=== PATIENT | male | born 1970 | race Asian ===

== ENCOUNTER 2024-09-17 10:02 | Observation (INO) ==
--- NOTE | 2024-09-17 10:44 | Emergency Department Note ---
History of Present Illness General Chief complaint: Cardiac Assessment Stated complaint: ABD PAIN, WEAKNESS/FEELS HEAVY Time Seen by Provider: 09/17/24 10:14 History of Present Illness Maximum Pain Intensity: 4 this 54-year-old male with a history of elevated cholesterol, hypertension, splenic infarct, and celiac artery thrombus and embolism, presents today with his son and , for evaluation of epigastric pain that occurred this morning. He had eaten breakfast and was walking the dog with his . He had epigastric discomfort at that time. He returned home. The epigastric pain lasted for approximately 20 minutes, increasing when he got home. He states he broke out in a sweat. It has now resolved. He currently denies any discomfort. His son and are doing the translation. He denies any nausea, vomiting, diarrhea, melena, or blood in his stools. 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 His states he had a near syncopal episode this morning and started to fall. She assisted him to the ground. He did not strike his head. There was no loss of consciousness. No other complaints at this time. The patient was evaluated in room C3. Home Medications Medication Instructions Recorded Confirmed Type atorvastatin 20 mg tablet 20 mg PO DAILY ##0 09/16/14 09/17/24 History Caltrate 600 600 mg PO BID #0 tabs 11/30/14 09/17/24 History amlodipine 10 mg tablet 10 mg PO DAILY #0 tabs 11/30/14 09/17/24 History warfarin 5 mg tablet 5 mg PO DAILY #0 tabs 01/02/15 09/17/24 History pantoprazole 40 mg tablet,delayed 40 mg PO DAILY #30 tabs 09/18/24 Rx release prednisone 10 mg tablet 30 mg (3 x 10 mg) PO DAILY #60 tabs 09/18/24 Rx Allergies Allergy/AdvReac Type Severity Reaction Status Date / Time No Known Allergies Allergy Unverified 09/18/14 03:22 Past Med/Surg History Problem List (Updated 09/20/24 @ 09:32 by Sukhjinder Anderson PA-C) Primary hypercoagulable state Arterial dissection (Acute) Elevated lactic acid level (Acute) Epigastric abdominal pain (Acute) Splenic infarct (Acute) Sudden onset of severe abdominal pain (Acute) Medical History HTN (hypertension) Hyperlipidemia Takayasu's arteritis Elevated cholesterol 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 Family History Other No pertinent family history Social History Smoking Status: Never smoker Hx Alcohol Use: No Hx Substance Use: No Preferred Language: Mandarin Bermudian Communication Ability: Effective Communication Tools: IPad and Language Line Inspector Dials Inspector Dials Required: Yes Beliefs That Will Affect Care: None Current Living Situation: Family Current Living Situation Comment: pt lives with family members Other Information That Helps Us Care for You: No Feels Safe at Home: Yes Safety Concerns: Feels Safe At This Time Assistive Devices: None Review of Systems A total of 10 systems reviewed and were otherwise negative obtained from his son Physical Exam Vital Signs Vital Signs - 24 hr 09/17/24 10:06 09/17/24 10:10 09/17/24 10:28 Temperature 36.2 C L Temperature Source Temporal Artery Scan Pulse Rate 73 74 Pulse Rhythm Regular Regular Pulse Strength Normal Respiratory Rate 20 18 Respiratory Effort / Characteristics Non-Labored Spontaneous Respiratory Depth Normal Respiratory Pattern Regular Blood Pressure 133/97 Blood Pressure Mean 109 Blood Pressure Position Sitting Pulse Oximetry 100 95 98 Oxygen Delivery Method Room Air Room Air Sepsis Recent Fever Within 48 Hours No Sepsis New/Unexplained Change in Mental Status No Sepsis Action Taken by Nursing No Action Required General: Well-developed, well-nourished, middle-aged male, in no acute distress. Laying on the bed. Alert and oriented. Skin: Warm dry with good turgor. No rashes. No ecchymosis or erythema. He is not currently diaphoretic. HEENT: Normocephalic atraumatic. Eyes PERRLA, EOMI. No conjunctiva or scleral injection. Ears TMs intact bilaterally with good light reflexes. No erythema or bulging. No hemotympanum. Canals are patent. Nares patent bilaterally without turbinate enlargement. No significant drainage. No epistaxis. Oropharynx without erythema or exudate. Uvula midline, oral mucosa moist. No lesions present. Fair dentition. Lymphatics are palpated without anterior or posterior chain enlargement or tenderness. Heart: Heart RRR. No MGR. Peripheral pulses are 2+. Lungs: Lungs are clear to auscultation. No crackles rhonchi or wheezing. Good air movement. The patient is able to take a deep breath. Abdomen: Abdomen was inspected, auscultated, and palpated. Bowel sounds present x 4. There is an abdominal bruit present. Soft, nontender to palpation. No hepato-splenomegaly. No masses noted. No rebound. No pain over McBurney's point. No CVA tenderness. Musculoskeletal: Gross motor function of the upper and lower extremities is intact and unremarkable. Neurologic: Gross sensation is intact across the upper and lower extremities by soft touch. Course Administered Medications Discontinued Medications Amlodipine Besylate (Amlodipine Besylate 5 Mg Tab) 10 mg PO DAILY [facility] Stop: 10/18/24 08:59 Last Admin: 09/18/24 08:59 Dose: 10 mg Documented By: [facility] Admin: 09/18/24 07:08 Dose: Not Given Documented By: [facility] Atorvastatin Calcium (Atorvastatin 20 Mg Tab) 20 mg PO DAILY [facility] Stop: 10/18/24 08:59 Last Admin: 09/18/24 08:50 Dose: 20 mg Documented By: [facility] Admin: 09/18/24 07:08 Dose: Not Given Documented By: [facility] Calcium Carbonate (Calcium Carbonate 1250mg Tab) 1 tab PO BID [facility] Stop: 10/17/24 20:59 Last Admin: 09/18/24 07:09 Dose: Not Given Documented By: [facility] Admin: 09/17/24 19:31 Dose: Not Given Documented By: KYLIE Potassium Chloride/Sodium Chloride (Normal Saline W/20 Meq Kcl) 20 meq in 1,000 mls @ 80 mls/hr IV .[id number] ERICKA Stop: 09/19/24 04:29 Last Admin: 09/18/24 04:35 Dose: 80 mls/hr Documented By: Infusion: 09/18/24 03:56 Dose: Infused Documented By: Admin: 09/17/24 15:26 Dose: 80 mls/hr Documented By: ML Ioversol (Optiray 320 125ml) 112 ml IV ONCE ONE Stop: 09/17/24 11:21 Last Admin: 09/17/24 11:20 Dose: 112 ml Documented By: NIDA Pantoprazole Sodium (Pantoprazole 40 Mg Tab) 40 mg PO DAILY [facility] Stop: 10/17/24 15:29 Last Admin: 09/18/24 07:09 Dose: Not Given Documented By: Admin: 09/17/24 16:24 Dose: 40 mg Documented By: ML Potassium Chloride (Potassium Chloride Crtab 20 Meq Tabcr) 40 meq PO NOW [facility] Stop: 09/18/24 07:56 Last Admin: 09/18/24 08:50 Dose: 40 meq Documented By: AMANDO Prednisone (Prednisone 10 Mg Tablet) 30 mg PO DAILY [facility] Stop: 10/18/24 10:29 Last Admin: 09/18/24 11:23 Dose: 30 mg Documented By: ROSEMARIE Medical Decision Making Differential Diagnosis Acute GA, ACS, syncope, near syncope, dehydration, hypotension, electrolyte disturbance, dissection Medical Records Attestation: I reviewed the patient's medical records. Home Medications Current Medication List: was personally reviewed by me Laboratory Data CBC obtained today shows a normal white count at 5.17. Normal H&H as well as normal platelets. Chemistry panel obtained today shows normal electrolytes. Normal BUN and creatinine. Glucose is elevated at 185. LFTs are also unremarkable. Troponin obtained today was normal at 3.1. C-reactive protein is normal at less than 0.5. INR is therapeutic at 2.6. PT 25.6. Lipase is normal at 19. UA obtained today shows trace glucose and is otherwise unremarkable. 09/18/24 06:30 09/18/24 06:30 Lab Results 09/17/24 09/17/24 Range/Units 10:20 12:30 WBC 5.17 (4.8-10.8) K/ul RBC 4.84 (4.70-6.10) M/uL Hgb 14.5 (14.0-18.0) g/dl Hct 43.2 (42.0-52.0) % MCV 89.3 (80.0-100.0) fL MCH 30.0 (25.0-34.0) pg MCHC 33.6 (32.0-36.0) g/dL RDW Std Deviation 41.8 (36.4-46.3) fL RDW Coeff of Machelle 12.8 (11.5-14.5) % Plt Count 215 (130-400) K/uL MPV 9.8 (9.4-12.4) fL Immature Gran % (Auto) 0.2 % Neut % (Auto) 51.0 % Lymph % (Auto) 42.0 % [place] % (Auto) 5.0 % Eos % (Auto) 1.2 % Baso % (Auto) 0.6 % Neut # (Auto) 2.64 (1.40-6.50) K/uL Lymph # (Auto) 2.17 (1.20-3.40) K/uL [place] # (Auto) 0.26 (0.11-0.59) K/uL Eos # (Auto) 0.06 (0.00-0.50) K/uL Baso # (Auto) 0.03 (0.00-0.20) K/uL Immature Gran # (Auto) 0.01 (0.01-0.20) K/uL PT 25.6 H (9.0-12.0) Seconds INR 2.6 H (0.9-1.1) Sodium 138 (136-145) mmol/L Potassium 3.7 (3.5-5.1) mmol/L Chloride 104 (98-107) mmol/L Carbon Dioxide 27 (21-32) mmol/L Anion Gap 7 (3-11) BUN 30 H (6-23) mg/dl Creatinine 1.15 (0.6-1.4) mg/dl Est Cr Clr Drug Dosing 62.8 ml/min eGFR 75.63 BUN/Creatinine Ratio 26.1 H (10-20) Glucose 185 H (70-99(Fasting)) mg/dl Calcium 9.4 (8.6-10.3) mg/dl Total Bilirubin 0.7 (0.2-1.0) mg/dl AST 33 (13-39) U/L ALT 41 (7-52) U/L Alkaline Phosphatase 101 (34-104) U/L Troponin I High Sens 3.1 (0-20) pg/ml C-Reactive Protein < 0.50 (0-0.5) mg/dl Total Protein 7.9 (6.0-8.3) gm/dl Albumin 4.4 (3.4-5.0) gm/dl Globulin 3.5 (2.5-4.0) gm/dl Albumin/Globulin Ratio 1.3 (0.9-2) Lipase 19 (11-82) U/L Urine Color Yellow Urine Appearance Clear (Clear) Urine pH 7.0 (4.5-7.5) Ur Specific [place] 1.027 (1.000-1.030) Urine Protein Negative (Negative) Urine Glucose (UA) Trace H (Negative) Urine Ketones Negative (Negative) Urine Blood Negative (Negative) Urine Nitrite Negative (Negative) Urine Bilirubin Negative (Negative) Urine Urobilinogen Negative (Negative) Ur Leukocyte Esterase Negative (Negative) Imaging Data My Impression: Chest CTA and abdomen/pelvic CTA were obtained today. these were interpreted by me and read by radiology. Chest films show no evidence of dissection, mass, or PE. Abdominal films show progressively worsened areas of high-grade stenosis with alternating fusiform dilation involving the celiac trunk and its branches which has progressed from the 2015 comparison. The vascular findings within the abdomen and pelvis are suggestive of an underlying chronic vasculitis. Ther is dilation of the superior mesenteric artery with a new age-indeterminate short segment dissection. 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 ECG Data Additional Comments: EKG obtained today was reviewed with Dr. Lackey. It shows a normal sinus rhythm with a rate of 69. No acute ST or T wave changes are present. It is unchanged when compared to his previous EKG. Blood Pressure Blood Pressure Findings: Elevated blood pressure Blood Pressure Disposition: elevated BP felt to be situational MDM Narrative The patient was evaluated in room C3. Translation was done through his and son. IV was established. Labs were obtained. He was placed on a quality assurance monitor chassis, and remained in a normal sinus rhythm with a rate in the 70s. No acute ST or T wave changes were noted. He had no further discomfort While in the ED. His labs were all unremarkable. Troponin was normal. EKG obtained today was also unremarkable. Given his CT angiography findings, phone consult was obtained from Dr. Owens from the vascular service. Findings were reviewed at length. He recommended anticoagulation and observation. No surgical intervention was warranted at this time. The patient is already adequately anticoagulated with warfarin and INR of 2.6. Admission was recommended to the family. They discussed the option for considerable time, and involved the advice of a physician friend, who I also spoke with by phone. They were ultimately agreeable to observation overnight. The patient required no medication or intervention while he was in the ED. Dr. Lu from the hospitalist service was consulted. Please see his dictation for final management. The case and care plan were reviewed with Dr. Lackey. Impression & Plan Arterial dissection Admission for observation and pain control if needed. Discharge Plan Visit Data Chief Complaint: Cardiac Assessment Stated Complaint: ABD PAIN, WEAKNESS/FEELS HEAVY ED Provider: Verónica Lackey ED Midlevel Provider: Sukhjinder Anderson Discharge Problem: Arterial dissection Patient Disposition: Admitted As Inpatient Condition: Good Discharge Instructions Interventions: ED Discharge Assessment Last Done: 09/17/24 17:08
[2024-09-17 10:45] LABS: Basophils # (auto) 0.03 K/uL (0.00-0.20); Basophils % (auto) 0.6 %; Eosinophils # (auto) 0.06 K/uL (0.00-0.50); Eosinophils % (auto) 1.2 %; Hematocrit (blood only) 43.2 % (42.0-52.0); Hemoglobin 14.5 g/dl (14.0-18.0); Immature Granulocytes # (auto) 0.01 K/uL (0.01-0.20); Immature Granulocytes % (auto) 0.2 %; Lymphocytes # (auto) 2.17 K/uL (1.20-3.40); Mean Corpuscular Hgb Conc 33.6 g/dL (32.0-36.0); Mean Corpuscular Volume 89.3 fL (80.0-100.0); Mean Platelet Volume 9.8 fL (9.4-12.4); Monocytes # (auto) 0.26 K/uL (0.11-0.59); Neutrophils # (auto) 2.64 K/uL (1.40-6.50); Platelet Count 215 K/uL (130-400); RDW Coefficient of Variation 12.8 % (11.5-14.5); RDW Standard Deviation 41.8 fL (36.4-46.3); Red Blood Count 4.84 M/uL (4.70-6.10); White Blood Count 5.17 K/ul (4.8-10.8)
[2024-09-17 11:06] LABS: Alanine Aminotransferase 41 U/L (7-52); Albumin Globulin Ratio 1.3 (0.9-2); Albumin Level 4.4 gm/dl (3.4-5.0); Alkaline Phosphatase 101 U/L (34-104); Anion Gap 7 (3-11); BUN Creatinine Ratio 26.1 (10-20); Bilirubin,Total 0.7 mg/dl (0.2-1.0); Blood Urea Nitrogen 30 mg/dl (6-23); Calcium 9.4 mg/dl (8.6-10.3); Carbon Dioxide 27 mmol/L (21-32); Chloride 104 mmol/L (98-107); Creatinine Clr Calc Pharmacy 62.8 ml/min; Globulin 3.5 gm/dl (2.5-4.0); Glucose 185 mg/dl (70-99(Fasting)); Lipase 19 U/L (11-82); Sodium 138 mmol/L (136-145); Total Protein 7.9 gm/dl (6.0-8.3); Troponin I High Sensitivity 3.1 pg/ml (0-20)
[2024-09-17 11:08] LABS: INR 2.6 (0.9-1.1); Prothrombin Time 25.6 Seconds (9.0-12.0)
[2024-09-17 11:11] LABS: Potassium 3.7 mmol/L (3.5-5.1)
[2024-09-17 11:17] LABS: Aspartate Aminotransferase 33 U/L (13-39)
[2024-09-17] MEDS: OPTIRAY 320 125ml IV ONE (11:20)
--- NOTE | 2024-09-17 12:26 | CT Scan Report ---
CT angio chest wo/w con, CT angio abdomen pelvis w con HISTORY: 54 years-old Male epigastric pain with diaphoresis, abd bruit acute chest and abdominal armani n with abdominal bruit COMPARISON: CTA abdomen and pelvis 05/10/2015, CT chest 09/19/2014, 05/25/2016 TECHNIQUE: CTA of the chest, abdomen and pelvis was obtained with IV contrast. Noncontrast chest CT a lso obtained. 3-D coronal and sagittal MIPS were obtained and submitted for review. All measurements were obtained according to NASCET criteria. A dose lowering technique was used consistent with the pr incipals of GILMA. FINDINGS: CHEST: Cardiomegaly without pericardial effusion. Mild ectasia of the ascending thoracic aorta, 3.8 x 3.7 cm without dissection or aneurysm. Unremarkable pulmonary artery. Noncontrast study demonstrates no intramural or mediastinal hematoma. Unremarkable thyroid. No lymphadenopathy. There is no pneumothorax, pleural effusion or airspace cons olidation. Mild subsegmental bibasilar atelectasis. No suspicious pulmonary nodules or cysts. Central airways are patent. Unremarkable soft tissues. No acute fracture. ABDOMEN/PELVIS: No pneumatosis or pneumoperitoneum. Unremarkable spleen, pancreas and adrenal glands. The gallbladder is contracted. 2.9 cm arterial enhancing focus of the caudate lobe unchanged from pr ior compatible with a benign hemangioma. Numerous bilateral renal cysts. No hydronephrosis. Mild pros tatomegaly. Urinary bladder wall thickening. No bowel obstruction or bowel wall thickening. Moderate colonic fecal retention. No ascites or mesenteric inflammation. Normal appendix. Unremarkable soft ti ssues. Degenerative changes of the spine. No acute fracture is seen. Atherosclerosis of the abdominal aorta. Fusiform dilation of the celiac trunk measuring 12 mm on imag e 98 is similar to prior. Progressively worsened high-grade stenoses noted within branches of the zachary iac trunk. Additionally, there is areas of stenosis and dilation involving the and hepatic and spleni c arteries. Fusiform dilation of the proximal superior mesenteric artery is also noted measuring up t o 1.4 cm transverse image 110, previously 1.0 cm. Additionally, new from prior there is a short segme nt dissection flap within the SMA on image 112 series 10. The renal arteries are patent. Moderate miguelangel nosis at the origin of the inferior mesenteric artery.Fusiform dilation of the common iliac arteries is as progressed from the 2016 exam measuring approximately 2.1 cm bilaterally, previously approximat mylene 1.6 cm. Short segment dissection flaps are also noted within the common and external iliac arteri es. IMPRESSION: 1. Unremarkable CTA of the chest without acute intrathoracic abnormality. 2. Progressively worsened areas of high-grade stenosis with alternating fusiform dilation involving t he celiac trunk and its branches which has progressed from the 2015 comparison. Again, the vascular f indings within the abdomen and pelvis are suggestive of an underlying chronic vasculitis. 3. Dilation of the superior mesenteric artery with a new age-indeterminate short segment dissection. 4. 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 5. Incidental findings as above. ACT 112: Negative or not required by law. The above report was generated using voice recognition software. It may contain grammatical, syntax o r spelling errors. Electronically signed by: Crow Aponte M.D. 09/17/2024 12:23 PM
[2024-09-17 12:55] LABS: Appearance Urine Clear (Clear); Bilirubin Urine Negative (Negative); Blood Urine Negative (Negative); Color Urine Yellow; Glucose Urine UA Trace (Negative); Ketones Urine Negative (Negative); Leukocyte Esterase Urine Negative (Negative); Nitrite Urine Negative (Negative); Protein Urine Negative (Negative); Specific Gravity Urine 1.027 (1.000-1.030); Urobilinogen Urine Negative (Negative)
--- NOTE | 2024-09-17 13:19 | Electrocardiogram Report ---
Test Reason : Blood Pressure : */* mmHG Vent. Rate : 69 BPM Atrial Rate : 69 BPM P-R Int : 190 ms QRS Dur : 104 ms QT Int : 410 ms P-R-T Axes : 40 22 39 degrees QTcB Int : 439 ms Normal sinus rhythm Normal ECG When compared with ECG of 18-Sep-2014 04:04, No significant change was found Confirmed by Kg Tomlinson ([id number]) on 09/17/2024 1:19:11 PM Referred By: REFERRED SELF Confirmed By: Kg Tomlinson
[2024-09-17] MEDS ORDERED: MoRPHine SULFATE 4 MG/ML 1 ML CARP\\VIAL IV PRN (14:53)
[2024-09-17 15:23] LABS: C Reactive Protein < 0.50 mg/dl (0-0.5)
--- NOTE | 2024-09-17 15:23 | History & Physical Report ---
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 Unremarkable CTA of the chest without acute intrathoracic abnormality. 2. Progressively worsened areas of high-grade stenosis with alternating fusiform dilation involving the celiac trunk and its branches which has progressed from the 2015 comparison. Again, the vascular findings within the abdomen and pelvis are suggestive of an underlying chronic vasculitis. 3. Dilation of the superior mesenteric artery with a new age-indeterminate short segment dissection. 4. 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 5. Incidental findings as above. (4) Primary hypercoagulable state: Plan: Has history of protein see deficiency Has been on warfarin and the INR is therapeutic at 2.6 today (5) Hyperlipidemia: Plan: Continue Statin (6) HTN (hypertension): Plan: Will continue current medications Plan DVT prophylaxis continue Coumadin and INR is therapeutic CODE STATUS Full History of Present Illness Chief Complaint: Severe epigastric pain with shortness of breath and sweating Primary Care Provider: Morris Mott DO History was taken through the patient and the son. He is a 54-year-old male with significant past medical history of primary hypercoagulable state, protein C deficiency, tachycardia osteoarthritis on anticoagulation, hypertension and hyperlipidemia apparently has been complaining of severe epigastric pain while walking with his dog this morning following breakfast. The pain lasted for about half an hour and not associated with some shortness of breath and profuse sweating which lasted for about half an hour. At some point he felt like fainting but did not have any loss of consciousness. In the emergency room he was completely free from any pain. He denies any fever any chills, any abdominal pain, nausea vomiting, any cough or problem with urine or bowel habit. He was noted to have acute/subacute superior mesenteric artery dissection with c hronic findings of arthritis without any evidence of pulmonary embolism and/or EKG changes. He was admitted to telemetry unit for continuation of care. Allergies Allergy/AdvReac Type Severity Reaction Status Date / Time No Known Allergies Allergy Unverified 09/18/14 03:22 Home Medications Medication Instructions Recorded Confirmed Type atorvastatin 20 mg tablet 20 mg PO DAILY ##0 09/16/14 09/17/24 History Caltrate 600 600 mg PO BID #0 tabs 11/30/14 09/17/24 History amlodipine 10 mg tablet 10 mg PO DAILY #0 tabs 11/30/14 09/17/24 History warfarin 5 mg tablet 5 mg PO DAILY #0 tabs 01/02/15 09/17/24 History Past Med/Surg History Problem List (Updated 09/17/24 @ 15:15 by Floridalma Lu MD) HTN (hypertension) Hyperlipidemia Primary hypercoagulable state Takayasu's arteritis Arterial dissection Elevated lactic acid level (Acute) Epigastric abdominal pain (Acute) Splenic infarct (Acute) Sudden onset of severe abdominal pain (Acute) Medical History (Updated 09/17/24 @ 15:15 by Floridalma Lu MD) Elevated cholesterol 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 Family History (Updated 09/17/24 @ 10:44 by Sukhjinder Anderson PA-C) Other No pertinent family history Social History Smoking Status: Never smoker Hx Alcohol Use: No Hx Substance Use: No Preferred Language: Mandarin Luxembourgish Communication Tools: [employer]ad [employer] Boss Required: Yes Beliefs That Will Affect Care: None Current Living Situation: Family Current Living Situation Comment: pt lives with family members Other Information That Helps Us Care for You: No Feels Safe at Home: Yes Safety Concerns: Feels Safe At This Time Assistive Devices: None Review of Systems Review of Systems: All systems reviewed and are unremarkable except as noted below Physical Exam Physical Exam: Lying in bed without any acute distress Constitutional: well developed, well nourished and average body habitus; not ill appearing Eyes: PERRL, conjunctivae normal, anicteric sclerae ENMT: external ear and nose normal, oropharynx normal Neck: trachea midline, no thyromegaly Respiratory: no respiratory distress Auscultation: lungs clear to auscultation bilaterally Cardiovascular: Rate/Rhythm: regular rate and regular rhythm; not tachycardic Heart Sounds: normal S1 and normal S2; no murmur Extremities: no edema Gastrointestinal (Abdomen): Inspection/Auscultation: normal bowel sounds; abdomen not distended Percussion/Palpation: abdomen soft; abdomen nontender Musculoskeletal: No acute arthritis involving any of the joint Neurologic: normal touch/pain/proprioception and moves all extremities; no focal motor deficits Lymphatic: no cervical or axillary lymphadenopathy Results & Data Results & Data Vital Signs (Past 12 Hours) Vital Signs Temp Pulse Resp BP Pulse Ox O2 Del Method 09/17/24 11:39 70 17 98 09/17/24 11:39 139/96 09/17/24 11:05 129/89 09/17/24 11:03 73 16 96 09/17/24 11:00 71 19 129/89 96 09/17/24 10:33 76 22 96 09/17/24 10:28 74 18 98 Room Air 09/17/24 10:21 72 21 97 09/17/24 10:15 72 23 98 09/17/24 10:10 95 Room Air 09/17/24 10:06 36.2 C L 73 20 133/97 100 Laboratory Results Short CBC 09/17/24 Range/Units 10:20 WBC 5.17 (4.8-10.8) K/ul Hgb 14.5 (14.0-18.0) g/dl Hct 43.2 (42.0-52.0) % Plt Count 215 (130-400) K/uL BMP 09/17/24 10:20 Sodium 138 Potassium 3.7 Chloride 104 Carbon Dioxide 27 BUN 30 H Creatinine 1.15 Glucose 185 H Calcium 9.4 Liver Function 09/17/24 Range/Units 10:20 Total Bilirubin 0.7 (0.2-1.0) mg/dl AST 33 (13-39) U/L ALT 41 (7-52) U/L Alkaline Phosphatase 101 (34-104) U/L Albumin 4.4 (3.4-5.0) gm/dl Urine 12/08/24 Range/Units 12:30 Urine Color Yellow Urine Appearance Clear (Clear) Urine pH 7.0 (4.5-7.5) Ur Specific [place] 1.027 (1.000-1.030) Urine Protein Negative (Negative) Urine Glucose (UA) Trace H (Negative) Diagnostic Findings CT angio chest wo/w con, CT angio abdomen pelvis w con HISTORY: 54 years-old Male epigastric pain with diaphoresis, abd bruit acute chest and abdominal pain with abdominal bruit COMPARISON: CTA abdomen and pelvis 05/10/2015, CT chest 09/19/2014, 05/25/2016 TECHNIQUE: CTA of the chest, abdomen and pelvis was obtained with IV contrast. Noncontrast chest CT also obtained. 3-D coronal and sagittal MIPS were obtained and submitted for review. All measurements were obtained according to NASCET criteria. A dose lowering technique was used consistent with the principals of GILMA. FINDINGS: CHEST: Cardiomegaly without pericardial effusion. Mild ectasia of the ascending thoracic aorta, 3.8 x 3.7 cm without dissection or aneurysm. Unremarkable pulmonary artery. Noncontrast study demonstrates no intramural or mediastinal hematoma. Unremarkable thyroid. No lymphadenopathy. There is no pneumothorax, pleural effusion or airspace consolidation. Mild subsegmental bibasilar atelectasis. No suspicious pulmonary nodules or cysts. Central airways are patent. Unremarkable soft tissues. No acute fracture. ABDOMEN/PELVIS: No pneumatosis or pneumoperitoneum. Unremarkable spleen, pancreas and adrenal glands. The gallbladder is contracted. 2.9 cm arterial enhancing focus of the caudate lobe unchanged from prior compatible with a benign hemangioma. Numerous bilateral renal cysts. No hydronephrosis. Mild prostatomegaly. Urinary bladder wall thickening. No bowel obstruction or bowel wall thickening. Moderate colonic fecal retention. No ascites or mesenteric inflammation. Normal appendix. Unremarkable soft tissues. Degenerative changes of the spine. No acute fracture is seen. Atherosclerosis of the abdominal aorta. Fusiform dilation of the celiac trunk measuring 12 mm on image 98 is similar to prior. Progressively worsened high- grade stenoses noted within branches of the celiac trunk. Additionally, there is areas of stenosis and dilation involving the and hepatic and splenic arteries. Fusiform dilation of the proximal superior mesenteric artery is also noted measuring up to 1.4 cm transverse image 110, previously 1.0 cm. Additionally, new from prior there is a short segment dissection flap within the SMA on image 112 series 10. The renal arteries are patent. Moderate stenosis at the origin of the inferior mesenteric artery.Fusiform dilation of the common iliac arteries is as progressed from the 2016 exam measuring approximately 2.1 cm bilaterally, previously approximately 1.6 cm. Short segment dissection flaps are also noted within the common and external iliac arteries. IMPRESSION: 1. Unremarkable CTA of the chest without acute intrathoracic abnormality. 2. Progressively worsened areas of high-grade stenosis with alternating fusiform dilation involving the celiac trunk and its branches which has progressed from the 2015 comparison. Again, the vascular findings within the abdomen and pelvis are suggestive of an underlying chronic vasculitis. 3. Dilation of the superior mesenteric artery with a new age-indeterminate short segment dissection. 4. 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 5. Incidental findings as above. ACT 112: Negative or not required by law. The above report was generated using voice recognition software. It may contain grammatical, syntax or spelling errors. Electronically signed by: Crow Aponte M.D. 09/17/2024 12:23 PM Medications Administered Current Inpatient Medications Potassium Chloride/Sodium Chloride (Normal Saline W/20 Meq Kcl) 20 meq in 1,000 mls @ 80 mls/hr IV .[id number] ERICKA Stop: 09/19/24 04:29 Morphine Sulfate (Morphine Sulfate 4 Mg/Ml 1 Ml Carp\Vial) 4 mg IV Q6H PRN PRN Reason: Pain Stop: 10/01/24 14:52 Code Status & VTE Plan VTE Prophylaxis Plan VTE Prophylaxis will be ordered: Yes
[2024-09-17] MEDS: NSS + 20MEQ KCL 20 MEQ/1,000 ML BAG IV SCH (15:26)
[2024-09-17] MEDS: PANTOprazole 40 MG TAB PO SCH (16:24)
[2024-09-17] MEDS: CALCIUM CARBONATE 1250MG TAB PO SCH (19:31)
--- OUTSIDE RECORDS SUMMARY | 2024-09-18 06:23 | External Medical Summary | Summary of Care ---
Author Name Unknown Organization [facility] Address [address] [place] [address] Phone [phone] Care Team Providers Care Push Bench Operator Helper Name Role Phone JulietaKelley gee Herlinda NOLAND Primary Care Provider [phone] Reason for Visit * Reason Comments eRx-Medication Refill Encounter Details Date Type Department Care Team (Late st Contact Info) Description 07/11/2024 Refill Family Practice [facility] [place] [address] [facility] [place] [address] Marta Mendoza MD [address] [facility] [place] [address] Pure hypercholesterolemia Allergies Active Allergy Reactions Criticality Noted Date Comments Shellfish Allergy 10/01/2017 Itchy, rash, throat closes up documented as of this encounter (statuses as of 07/14/2024) Medications Medication Sig Dispensed Refills Start Date End Date Status Cougar-3 Fatty Acids (FISH OIL) 1000 MG Capsule Take 1 Capsule by mouth in the morning. Active Multiple Vitamins-Minerals (CENTRUM ADULTS) TABS Take 1 Tab by mouth daily. Active amLODIPine Besylate 10 MG Oral Tablet (Norvasc)Indications:HTN , goal below 140/90 Take 1 Tablet by mouth daily. In the morning. 90 Tablet 3 4 Active Warfarin Sodium 5 MG Oral Tablet (Coumadin)Indications:Pr imary hypercoagulable state (HCC),Anticoagulation management encounter,[facility]PC current use of anticoagulant therapy,Protein C deficiency (HCC) Take 1 Tablet by mouth in the morning. OR DIRECTED BY [facility]. 90 Tablet 1 4 Active Atorvastatin Calcium 20 MG Oral Tablet (Lipitor)Indications:Pur e hypercholesterolemia TAKE 1 TABLET BY MOUTH IN THE MORNING 90 Tablet 4 Active Atorvastatin Calcium 20 MG Oral Tablet (Lipitor)Indications:Pur e hypercholesterolemia TAKE 1 TABLET BY MOUTH IN THE MORNING 90 Tablet 4 024 Discontinued documented as of this encounter (statuses as of 07/14/2024) Active Problems Problem Noted Date Diagnosed Date Primary osteoarthritis of both knees 02/24/2017 Chronic anticoagulation 03/28/2015 Encounter for long-term (current) use of medicat ions 03/28/2015 Takayasu's arteritis 10/30/2014 Primary hypercoagulable state 10/03/2014 Protein C deficiency 10/03/2014 Hyperlipidemia HTN, goal below 140/90 documented as of this encounter (statuses as of 07/14/2024) Resolved Problems Problem Noted Date Diagnosed Date Resolved Date 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 pylori infection 03/08/20 19 Colitis 08/20/2020 Arteritis, Takayasu 03/28/20 15 documented as of this encounter (statuses as of 07/14/2024) Immunizations Name Administration Dates Next Due COVID-19 mRNA, LNP-s, No Pre serve, 2-Dose Series ([employer] 08/07/2021,01/29/2021,01/08/2021 COVID-19, MRNA-LNP, 23-24, P F, 30 MCG/0.3 mL, 12 YRS AND ABOVE, IM ([employer] [place]) 10/07/2023 Covid-19, Mrna, Lnp-s, Pf, B ivalent, 30 Mcg, IM, 12 yrs and above (Pfizer) 10/26/2022 Seasonal Influenza Vac., MDV , IM, 0.5 mL (Fluzone) 09/26/2014 Seasonal Influenza, PF, 6 M & above, IM , (FluLaval or Fluzone) 06/30/2023,08/18/2022,06/18/2021, 020,09/06/2018,01/20/2018 Seasonal Influenza, Quadriva lent, No Preserve, IM 08/07/2016,08/06/2015 Seasonal Influenza, Trivalen t, (IIV3), PF, (Fluzone) 06/13/2024 TDAP (age 10 and older)(Boostrix) 08/07/2016 documented as of this encounter Social History Tobacco Use Types Packs/Day Years Used Date Smoking Tobacco: Never Smokeless Tobacco: Never Alcohol Use Standard Drinks/Week Comments No 0 (1 standard drink = 0.6 oz pur e alcohol) AUDIT-C Answer Date Recorded Frequency of Alcohol Consumption Never 09/06/2018 Average Number of Drinks Not on file 018 Frequency of Binge Drinking Not on file 08/12 PHQ-2 Answer Date Recorded PHQ-2 Score 0 08/20/2020 Utilities Answer Date Recorded Do you have trouble paying y our heating, water, or electric bill? (Adult - for ages 18 years and over) Not on file 03/28/2024 Is your family able to pay t he heat, water, or electric bill? (Household - for ages 0-17 years) Not on file 03/28/2024 Does your family have access to good internet? (Household - for ages 0-17 years) Not on file 03/28/2024 Social Connections Answer Date Recorded How often do you feel lonely or isolated from those around you? (Adult - for ages 18 years and over) Not on file 03/28/2024 Sex and Gender Information Value Date Recorded Sex Assigned at Male 01/21/2022 9:34 PM EDT Gender Identity Not on file Sexual Orientation Straight 01/21/2022 9: 34 PM EDT Job Start Date Occupation Industry Not on file Not on file Not on file documented as of this encounter Miscellaneous Notes * Telephone Encounter - Lorena Griffith - 07/14/2024 6:50 PM EDT Received message from [facility] regarding patient needing labs. Patient was notified. Successfully contacted patient and provided [facility] message. * Telephone Encounter - Anum Katz RP - 07/13/2024 9:50 AM EDT Signed Prescriptions: Disp Refills Atorvastatin Calcium 20 MG Oral Tablet (Li*90 Tab*0 Sig: TAKE 1 TABLET BY MOUTH IN THE MORNING Authorizing Provider: KELLEY AGUILERA Ordering User: ANUM KATZ * Telephone Encounter - Anum Katz RPh - 07/13/2024 9:49 AM EDT Provided 90 days supply with 0 refill(s). Per refill protocol patient should have Lipid panel on file within past year. Reviewed AMP report, Care Gaps/Health Maintenance, medications list, and for any routine labs typically ordered for this patient. Lab orders placed. Please contact patient to advise of labs ordered for blood draw. Recommend patient to fast if able for labs. Patient may still have water and regular medications. Advise to obtain labs before requesting the next refill. Thanks, Anum Katz, PharmD Clinical Pharmacist [facility] [phone] 07/13/2024, 9:49 AM documented in this encounter Plan of Treatment Upcoming Encounters Date Type Department Care Team (Late st Contact Info) Description 07/31/2024 2:00 PM EDT Anticoagulation Pharmacy, [facility] [address] [place] [address] Pharmacist2, [facility] [address] [place] [address] 09/15/2024 10:00 AM EST Office Visit Family [facility] [address] [place] [address] Kelley Aguilera, [address] [facility] [place] [address] Scheduled Procedures Name Priority Associated Diagnoses Date/Ti me COLONOSCOPY FLEXIBLE PROXIMA L DIAGNOSTIC Recall History of colonic polyps Health Maintenance Due Date Last Done Comments HIV Screening 1985 Hepatitis B Vaccine (1 of 3 - 19+ 3-dose series) 1989 Fecal Occult Blood Test 2015 Sigmoidoscopy 2015 Zoster Vaccines (1 of 2) 2020 Depression Screening 08/20/2021 08/20/2020 Cologuard 08/30/2023 08/30/2020, 08/11, 08/26/2020 COVID-19 Vaccine ( season) 2024 10/07/2023, 10/26/2022, 08/07/2021, Additional history exists GFR 10/25/2024 10/25/2023, 02/0 05/2023, 09/22/2022, Additional history exists Albumin/Creatinine Ratio 09/22/2025 09/22/2022 Colonoscopy 08/01/2026 08/01/2021, 08/01/2021 Colorectal Cancer Screening 08/01/2026 DTap/Tdap Vaccines (2 - Td or Tdap) 08/07/2026 08/07/2016 Lipid Panel 09/22/2027 09/22/2022, 02/09, 04/29/2015 RETIRED - COLONOSCOPY-EVERY 5 YRS AGES 18-100 Discontinued 08/01/2021, 08/01/2021 Influenza Vaccine (FLU shot) Completed 06/13/2024, 06/30/2023, 08/18/2022, Additional history exists HPV (Gardasil) Vaccine Aged Out No lo nger eligible based on patient's age to complete this topic MENINGOCOCCAL (MENACTRA/MENVEO) Aged Out No longer eligible based on patient's age to complete this topic Pneumococcal Vaccine: Pediatrics (0 to 5 Years) and At-Risk Patients (6 to 64 Years) Aged Out No longer eligible based on patient's age to complete this topic documented as of this encounter Medical Devices Not on filedocumented as of this encounter Visit Diagnoses Diagnosis Pure hypercholesterolemia documented in this encounter Advance Directives * Full Code (Latest Code Status on File) Date Activated Date Inactivated Comments 10/13/2017 10:50 AM 10/13/2017 4:25 PM This order re flects the patients wishes and were consensually agreed upon. Care Teams Push Bench Operator Helper Relationship Specialty Start Date End Date Kelley Aguilera DO [address] [place] [address] PCP - General Family Medicine 03/23/17 documented as of this encounter
--- OUTSIDE RECORDS SUMMARY | 2024-09-18 06:23 | External Medical Summary | Summary of Care ---
Author Name Unknown Organization [facility] Address [address] [place] [address] Phone [phone] Care Team Providers Care Home Management Supervisor Name Role Phone Morris Mott DO Primary Care Provider [phone] Encounter Details Date Type Department Care Team (Late st Contact Info) Description 06/13/2024 11:20 AM EDT Immunization Ancillary [facility] [place] [address] [place] [address] Sp, [facility] [address] [facility] [place] [address] Allergies Active Allergy Reactions Criticality Noted Date Comments Shellfish Allergy 10/01/2017 Itchy, rash, throat closes up documented as of this encounter (statuses as of 06/13/2024) Medications Medication Sig Dispensed Refills Start Date End Date Status [place]-3 Fatty Acids (FISH OIL) 1000 MG Capsule Take 1 Capsule by mouth in the morning. Active Multiple Vitamins-Minerals (CENTRUM ADULTS) TABS Take 1 Tab by mouth daily. Active amLODIPine Besylate 10 MG Oral Tablet (Norvasc)Indications:HTN, goal below 140/90 Take 1 Tablet by mouth daily. In the morning. 90 Tablet 3 03/16/2024 Active Atorvastatin Calcium 20 MG Oral Tablet (Lipitor)Indications:Pure hypercholesterolemia TAKE 1 TABLET BY MOUTH IN THE MORNING 90 Tablet 04/17/2024 Active Warfarin Sodium 5 MG Oral Tablet (Coumadin)Indications:Prim roberto hypercoagulable state (HCC),Anticoagulation management encounter,senior living current use of anticoagulant therapy,Protein C deficiency (HCC) Take 1 Tablet by mouth in the morning. OR DIRECTED BY Coumadin Clinic. 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 pylori infection 03/08/20 19 Colitis 08/20/2020 Arteritis, Takayasu 03/28/20 15 documented as of this encounter (statuses as of 06/13/2024) Immunizations Name Administration Dates Next Due COVID-19 mRNA, LNP-s, No Pre serve, 2-Dose Series (Compound Time) 08/07/2021,01/29/2021,01/08/2021 COVID-19, MRNA-LNP, 23-24, P F, 30 MCG/0.3 mL, 12 YRS AND ABOVE, IM ([facility]) 10/07/2023 Covid-19, Mrna, Lnp-s, Pf, Bivalent, 30 Mcg, IM, 12 yrs and above (Compound Time) 10/26/2022 Seasonal Influenza, PF, 6 M & above, IM , (FluLaval or Fluzone) 06/30/2023,08/18/2022,06/18/2021,2 0 20,09/06/2018,01/20/2018 Seasonal Influenza, Quadriva lent, No Preserve, IM 08/07/2016,08/06/2015 Seasonal Influenza, Trivalen t, (IIV3), PF, (Fluzone) 06/13/2024 Seasonal Influenza, Trivalen t, (IIV3), with Preserv, (Fluzone) 09/26/2014 TDAP (age 10 and older)(Boostrix) 08/07/2016 documented [...] on file documented as of this encounter Plan of Treatment Upcoming Encounters Date Type Department Care Team (Late st Contact Info) Description 06/19/2024 3:50 PM EDT Anticoagulation Pharmacy, [facility] [address] [place] [address] Pharmacist2, [facility] [address] [place] [address] 09/15/2024 10:00 AM EST Office Visit Family Practice [facility] [address] [place] [address] Morris Mott, [address] [facility] [place] [address] Scheduled Procedures Name Priority Associated Diagnoses Date/Ti me COLONOSCOPY FLEXIBLE PROXIMA L DIAGNOSTIC Recall History of colonic polyps Health Maintenance Due Date Last Done Comments HIV Screening 1985 Hepatitis B Vaccine (1 of 3 - 19+ 3-dose series) 1989 Fecal Occult Blood Test 2015 Sigmoidoscopy 2015 Zoster Vaccines (1 of 2) 2020 Depression Screening 08/20/2021 08/20/2020 Cologuard 08/30/2023 08/30/2020, 08/11, 08/26/2020 GFR 10/25/2024 10/25/2023, 05/2023, 09/22/2022, Additional history exists Albumin/Creatinine Ratio 09/22/2025 09/22/2022 Colonoscopy 08/01/2026 08/01/2021, 08/01/2021 Colorectal Cancer Screening 08/01/2026 DTap/Tdap Vaccines (2 - Td or Tdap) 08/07/2026 08/07/2016 Lipid Panel 09/22/2027 09/22/2022, 02/09, 04/29/2015 RETIRED - COLONOSCOPY-EVERY 5 YRS AGES 18-100 Discontinued 08/01/2021, 08/01/2021 COVID-19 Vaccine Completed 10/07/2023, , 08/07/2021, Additional history exists Influenza Vaccine (FLU shot) Completed 06/13/2024, 06/30/2023, [...] Not on filedocumented as of this encounter Advance Directives * Full Code (Latest Code Status on File) Date Activated Date Inactivated Comments 10/13/2017 10:50 AM 10/13/2017 4:25 PM This order re flects the patients wishes and were consensually agreed upon. Care Teams Home Management Supervisor Relationship Specialty Start Date End Date Morris Mott DO [address] [place] [address] PCP - General Family Medicine 03/23/17 documented as of this encounter
--- OUTSIDE RECORDS SUMMARY | 2024-09-18 06:23 | External Medical Summary | Summary of Care ---
Author Name Unknown Organization [facility] Address [address] [place] [address] Phone [phone] Care Team Providers Care Physiological Chemist Name Role Phone JulietaMorris gee Herlinda NOLAND Primary Care Provider [phone] Reason for Visit * Reason Comments Dosage Adjustment In Person (Anticoag Cl inic) Encounter Details Date Type Department Care Team (Latest Contact Info) Description 07/31/2024 2:00 PM EDT Anticoagulation Pharmacy, [facility] [address] [facility] [place] [address] Pharmacist2, [facility] [address] [facility] [place] [address] Protein C deficiency (HCC)*; Anticoagulation management encounter Allergies Active Allergy Reactions Criticality Noted Date Comments Shellfish Allergy 10/01/2017 Itchy, rash, throat closes up documented as of this encounter (statuses as of 07/31/2024) Medications Medication Sig Dispensed Refills Start Date End Date Status [place]-3 Fatty Acids (FISH OIL) 1000 MG Capsule Take 1 Capsule by mouth in the morning. Active Multiple Vitamins-Minerals (CENTRUM ADULTS) TABS Take 1 Tab by mouth daily. Active amLODIPine Besylate 10 MG Oral Tablet (Norvasc)Indications:HTN, goal below 140/90 Take 1 Tablet by mouth daily. In the morning. 90 Tablet 3 03/16/2024 Active Warfarin Sodium 5 MG Oral Tablet (Coumadin)Indications:Prim roberto hypercoagulable state (HCC),Anticoagulation management encounter,oysterman current use of anticoagulant therapy,Protein C deficiency (HCC) Take 1 Tablet by mouth in the morning. OR DIRECTED BY Coumadin Clinic. 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 pylori infection 03/08/20 19 Colitis 08/20/2020 Arteritis, Takayasu 03/28/20 15 documented as of this encounter (statuses as of 07/31/2024) Immunizations Name Administration Dates Next Due COVID-19 mRNA, LNP-s, No Pre serve, 2-Dose Series ([place]) 08/07/2021,01/29/2021,01/08/2021 COVID-19, MRNA-LNP, 23-24, P F, 30 MCG/0.3 mL, 12 YRS AND ABOVE, IM ([employer]) 10/07/2023 Covid-19, Mrna, Lnp-s, Pf, B ivalent, [...] on file documented as of this encounter Progress Notes * Rodolfo Ricks [facility] - 07/31/2024 2:05 PM EDT Medication Therapy Disease Management - Anticoagulation Patient: Samara Alberts | : 1970 Subjective Contacts Contact Date/Time Type Contact Phone/Fax 07/24/2024 05:16 AM EDT Vendor (Outgoing) Samara Alberts [phone] 07/28/2024 05:10 AM EDT Vendor (Outgoing) Samara Alberts [phone] 07/30/2024 05:11 AM EDT Vendor (Outgoing) Samara Alberts [phone] Patient-Reported Symptoms: Patient Findings Negatives: Signs/symptoms of thrombosis, Signs/symptoms of bleeding, Change in health, Change in alcohol use, Change in activity, Upcoming invasive procedure, Missed doses, Extra doses, Change in medications, Change in diet/appetite, Bruising Objective Current Warfarin Dose As of 07/31/2024 Warfarin maintenance plan: 5 mg (5 mg x 1) every day INR Result As of 07/31/2024 INR goal: 2.0-3.0 INR used for dosin.6 (07/31/2024) Assessment & Plan Warfarin Plan As of 07/31/2024 Full warfarin instructions: 5 mg every day No change documented: Rodolfo Ricks RPh Next INR check: 09/18/2024 Repeat PT/INR in 7 week(s) Weekly dose: not changed Additional Dosing Information: Description (Takes in AM) I spent a total of 10-19 minutes (exact time 10 mins) on the date of service in preparation, delivery, and documentation of the care provided to Samara Alberts excluding any time spent in the performanceof separately billed services or time spent by another provider/QHP. Rodolfo Ricks [facility] Clinical Pharmacist 07/31/2024, 2:05 PM documented in this encounter Plan of Treatment Upcoming Encounters Date Type Department Care Team (Late st Contact Info) Description 09/15/2024 10:00 AM EST Office Visit Family Practice [facility] [address] [place] [address] Morris Mott DO [address] [place] [address] 09/18/2024 1:50 PM EST Anticoagulation Pharmacy, [facility] [address] [place] [address] Pharmacist2, [facility] [address] [facility] [place] [address] Scheduled Procedures Name Priority Associated Diagnoses Date/Ti [...] Not on filedocumented as of this encounter Procedures Procedure Name Priority Date/Time Associated Diagnosis Comments INR FINGERSTICK, POINT OF CARE STAT 07/31/2024 2:03 PM EDT Protein C deficiency (HCC) Anticoagulation management encounter documented in this encounter Results * INR FINGERSTICK, POINT OF CARE (07/31/2024 2:03 PM EDT) Fingerstick INR 2.6 INR 2:04 PM EDT [facility] 56-02 Blood 07/31/2024 2:03 PM EDT 07/31/2024 2:04 PM EDT Narrative [facility] 56-02 - 07/31/2024 2:04 PM EDT Therapeutic ranges for non-operative patients: Prophylaxsis/treatment of DVT: (Range:2.0-3.0) Treatment of pulmonary embolism:(Range:2.0-3.0) Prevention of systemic embolism from: -tissue heart valves -acute myocardial infarction -valvular heart disease -atrial fibrillation (Range: 2.0-3.0) Mechanical prosthetic valves: (Range: 2.5-3.5) Rodolfo Ricks [facility] LAB POINT O F CARE TEST DOCKED DEVICE UNSOLICITED RESULTS [facility] 56-02 [address] [facility] [place] [address] documented in this encounter Visit Diagnoses Diagnosis Protein C deficiency (HCC)- Primary Primary hypercoagulable state Anticoagulation management encounter Encounter for therapeutic drug monitoring documented in this encounter Advance Directives * Full Code (Latest Code Status on File) Date Activated Date Inactivated Comments 10/13/2017 10:50 AM 10/13/2017 4:25 PM This order re flects the patients wishes and were consensually agreed upon. Care Teams Physiological Chemist Relationship Specialty Start Date End Date Morris Mott DO [address] [facility] [place] [address] PCP - General Family Medicine 03/23/17 documented as of this encounter"
--- OUTSIDE RECORDS SUMMARY | 2024-09-18 06:23 | External Medical Summary | Summary of Care ---
Author Name Unknown Organization [facility] Address [address] [place] [address] Phone [phone] Care Team Providers Care Diversified Crops Supervisor Name Role Phone JulietaMorris gee Herlinda NOLAND Primary Care Provider [phone] Reason for Visit * Reason Comments Dosage Adjustment In Person (Anticoag Cl inic) Encounter Details Date Type Department Care Team (Latest Contact Info) Description 05/01/2024 3:50 PM EDT Anticoagulation Pharmacy, [facility] [address] [facility] [place] [address] Pharmacist2, [facility] [address] [facility] [place] [address] Protein C deficiency (HCC)*; Anticoagulation management encounter Allergies Active Allergy Reactions Criticality Noted Date Comments Shellfish Allergy 10/01/2017 Itchy, rash, throat closes up documented as of this encounter (statuses as of 05/01/2024) Medications Medication Sig Dispensed Refills Start Date End Date Status [place]-3 Fatty Acids (FISH OIL) 1000 MG Capsule [...] Tablet (Coumadin)Indications:Prim roberto hypercoagulable state (HCC),Anticoagulation management encounter,buttermaker helper current use of anticoagulant therapy,Protein C deficiency (HCC) Take 1 Tablet by mouth in the morning. OR DIRECTED BY Coumadin Clinic. 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 pylori infection 03/08/20 19 Colitis 08/20/2020 Arteritis, Takayasu 03/28/20 15 documented as of this encounter (statuses as of 05/01/2024) Immunizations Name Administration Dates Next Due COVID-19 mRNA, LNP-s, No Pre serve, 2-Dose Series ([place]) 08/07/2021,01/29/2021,01/08/2021 COVID-19, MRNA-LNP, 23-24, P F, 30 MCG/0.3 mL, 12 YRS AND ABOVE, IM ([facility]) 10/07/2023 Covid-19, Mrna, Lnp-s, Pf, Bivalent, 30 Mcg, IM, 12 yrs and above (Pfizer) 10/26/2022 Seasonal Influenza, PF, 6 M & above, IM , (FluLaval or Fluzone) 06/30/2023,08/18/2022,06/18/2021,09/23/2 0 20,09/06/2018,01/20/2018 Seasonal Influenza, Quadriva lent, No Preserve, IM 08/07/2016,08/06/2015 Seasonal Influenza, Split, I IV3, With Preserve, Inj 09/26/2014 TDAP (age 10 and older)(Boostrix) 08/07/2016 [...] of this encounter Progress Notes * Rodolfo Ricks, [facility] - 05/01/2024 3:48 PM EDT Medication Therapy Disease Management - Anticoagulation Patient: Samara Alberts | : 1970 Subjective Patient-Reported Symptoms: Patient Findings Negatives: Signs/symptoms of thrombosis, Signs/symptoms of bleeding, Change in health, Change in alcohol use, Change in activity, Upcoming invasive procedure, Missed doses, Extra doses, Change in medications, Change in diet/appetite, Bruising Objective Current Warfarin Dose As of 05/01/2024 Warfarin maintenance plan: 5 mg (5 mg x 1) every day INR Result As of 05/01/2024 INR goal: 2.0-3.0 INR used for dosin.5 (05/01/2024) Assessment & Plan Warfarin Plan As of 05/01/2024 Full warfarin instructions: 5 mg every day No change documented: Rodolfo Ricks maldonado Next INR check: 06/19/2024 Repeat PT/INR in 6 week(s) Weekly dose: not changed Additional Dosing Information: Description (Takes in AM) Rodolfo Ricks [facility] Clinical Pharmacist 05/01/2024, 3:48 PM documented in this encounter Plan of Treatment Upcoming Encounters Date Type Department Care Team (Late st Contact Info) Description 06/19/2024 3:50 PM EDT Anticoagulation Pharmacy, [facility] [address] [facility] [place] [address] Pharmacist2, [facility] [address] [facility] [place] [address] 09/15/2024 10:00 AM EST Office Visit Family Practice [facility] [address] [facility] [place] [address] Morris Mott, DO [address] [facility] [place] [address] Scheduled Procedures Name Priority Associated Diagnoses Date/Ti me COLONOSCOPY FLEXIBLE PROXIMA L DIAGNOSTIC Recall History of colonic polyps Health Maintenance Due Date Last Done Comments HIV Screening 1985 Hepatitis B Vaccine (1 of 3 - 19+ 3-dose series) 1989 Fecal Occult Blood Test 2015 Sigmoidoscopy 2015 Zoster Vaccines (1 of 2) 2020 Depression Screening 08/20/2021 08/20/2020 Cologuard 08/30/2023 08/30/2020, 08/11, 08/26/2020 Influenza Vaccine (FLU shot) (#1) 2024 06/30/2023, 08/18/2022, 06/18/2021, Additional history exists GFR 10/25/2024 10/25/2023, 02/0 05/2023, 09/22/2022, Additional history exists Albumin/Creatinine Ratio 09/22/2025 09/22/2022 Colonoscopy 08/01/2026 08/01/2021, 08/01/2021 Colorectal Cancer Screening 08/01/2026 DTaP,Tdap,and Td Vaccines (2 - Td or Tdap) 08/07/2026 08/07/2016 Lipid Panel 09/22/2027 09/22/2022, 02/09, 04/29/2015 RETIRED - COLONOSCOPY-EVERY 5 YRS AGES 18-100 Discontinued 08/01/2021, 08/01/2021 COVID-19 Vaccine Completed 10/07/2023, , 08/07/2021, Additional history exists HPV (Gardasil) Vaccine Aged [...] Comments INR FINGERSTICK, POINT OF CARE STAT 05/01/2024 3:51 PM EDT Protein C deficiency (HCC) Anticoagulation management encounter documented in this encounter Results * INR FINGERSTICK, POINT OF CARE (05/01/2024 3:51 PM EDT) Fingerstick INR 2.5 INR 3:53 PM EDT [facility] Blood 05/01/2024 3:51 PM EDT 05/01/2024 3:53 PM EDT Narrative [facility] 56-02 - 05/01/2024 3:53 PM EDT Therapeutic ranges for non-operative patients: Prophylaxsis/treatment of DVT: (Range:2.0-3.0) Treatment of pulmonary embolism:(Range:2.0-3.0) Prevention of systemic embolism from: -tissue heart valves -acute myocardial infarction -valvular heart disease -atrial fibrillation (Range: 2.0-3.0) Mechanical prosthetic valves: (Range: 2.5-3.5) Rodolfo Ricks [facility] LAB POINT O F CARE TEST DOCKED DEVICE UNSOLICITED RESULTS [facility] 56-02 [address] [place] [address] documented in this encounter Visit Diagnoses Diagnosis Protein C deficiency (HCC)- Primary Primary hypercoagulable state Anticoagulation management encounter Encounter for therapeutic drug monitoring documented in this encounter Advance Directives * Full Code (Latest Code Status on File) Date Activated Date Inactivated Comments 10/13/2017 10:50 AM 10/13/2017 4:25 PM This order re flects the patients wishes and were consensually agreed upon. Care Teams Diversified Crops Supervisor Relationship Specialty Start Date End Date [facility]ott DO [address] [facility] [address] PCP - General Family Medicine 03/23/17 documented as of this encounter"
--- OUTSIDE RECORDS SUMMARY | 2024-09-18 06:23 | External Medical Summary ---
Author Name Unknown Address Unknown Organization K09[facility] [place] [address] Laboratory Report Ordering Provider Test Date Status MAYTE GUAJARDO 07/31/2024 14:03:10 Final Therapeutic ranges for non-o perative patients:
Prophylaxsis/treatment of DVT: (Range:2.0-3.0)
Treatment of pulmonary embolism:(Range:2.0-3.0)
Prevention of systemic embolism from:
-tissue heart valves
-acute myocardial infarction
-valvular heart disease
-atrial fibrillation
(Range: 2.0-3.0)
Mechanical prosthetic valves: (Range: 2.5-3.5) Observation Date Value Abnormality Reference (Units ) Status INR in Capillary blood by Coagulation assay 07/31/2024 14:03:10 2.6 (INR) Final Performing Location [facility] [place] [id number]
--- OUTSIDE RECORDS SUMMARY | 2024-09-18 06:23 | External Medical Summary ---
Author Name Unknown Address Unknown Organization K[facility] [place] [address] Laboratory Report Ordering Provider Test Date Status MAYTE GUAJARDO 06/19/2024 15:45:23 Final Therapeutic ranges for non-o perative patients:
Prophylaxsis/treatment of DVT: (Range:2.0-3.0)
Treatment of pulmonary embolism:(Range:2.0-3.0)
Prevention of systemic embolism from:
-tissue heart valves
-acute myocardial infarction
-valvular heart disease
-atrial fibrillation
(Range: 2.0-3.0)
Mechanical prosthetic valves: (Range: 2.5-3.5) Observation Date Value Abnormality Reference (Units ) Status INR in Capillary blood by Coagulation assay 06/19/2024 15:45:23 2.7 (INR) Final Performing Location [facility] [place] [address]
--- OUTSIDE RECORDS SUMMARY | 2024-09-18 06:23 | External Medical Summary ---
Author Name Unknown Address Unknown Organization K09:[facility] [place] [address] Laboratory Report Ordering Provider Test Date Status MAYTE GUAJARDO 05/01/2024 15:51:55 Final Therapeutic ranges for non-o perative patients:
Prophylaxsis/treatment of DVT: (Range:2.0-3.0)
Treatment of pulmonary embolism:(Range:2.0-3.0)
Prevention of systemic embolism from:
-tissue heart valves
-acute myocardial infarction
-valvular heart disease
-atrial fibrillation
(Range: 2.0-3.0)
Mechanical prosthetic valves: (Range: 2.5-3.5) Observation Date Value Abnormality Reference (Units ) Status INR in Capillary blood by Coagulation assay 05/01/2024 15:51:55 2.5 (INR) Final Performing Location [facility] [place] [address]
--- OUTSIDE RECORDS SUMMARY | 2024-09-18 06:23 | External Medical Summary | Summary of Care ---
Author Name Unknown Organization [facility] Address [address] [place] [address] Phone [phone] Care Team Providers Care Sample Hand Name Role Phone JulietaMorris gee Herlinda NOLAND Primary Care Provider [phone] Reason for Visit * Reason Comments Dosage Adjustment In Person (Anticoag Cl inic) Encounter Details Date Type Department Care Team (Latest Contact Info) Description 06/19/2024 3:50 PM EDT Anticoagulation Pharmacy, [facility] [address] [facility] [place] [address] Pharmacist2, [facility] [address] [facility] [place] [address] Protein C deficiency (HCC)*; Anticoagulation management encounter Allergies Active Allergy Reactions Criticality Noted Date Comments Shellfish Allergy 10/01/2017 Itchy, rash, throat closes up documented as of this encounter (statuses as of 06/19/2024) Medications Medication Sig Dispensed Refills Start Date End Date Status [place]-3 Fatty Acids (FISH OIL) 1000 MG Capsule [...] Tablet (Coumadin)Indications:Prim roberto hypercoagulable state (HCC),Anticoagulation management encounter,termite control technician current use of anticoagulant therapy,Protein C deficiency (HCC) Take 1 Tablet by mouth in the morning. OR DIRECTED BY [facility]. 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 pylori infection 03/08/20 19 Colitis 08/20/2020 Arteritis, Takayasu 03/28/20 15 documented as of this encounter (statuses as of 06/19/2024) Immunizations Name Administration Dates Next Due COVID-19 mRNA, LNP-s, No Pre serve, 2-Dose Series (So [employer] Me) 08/07/2021,01/29/2021,01/08/2021 COVID-19, MRNA-LNP, 23-24, P F, 30 MCG/0.3 mL, 12 YRS AND ABOVE, IM ([facility]) 10/07/2023 Covid-19, Mrna, Lnp-s, Pf, Bivalent, 30 [...] Rodolfo Ricks [facility] - 06/19/2024 3:43 PM EDT Medication Therapy Disease Management - Anticoagulation Patient: Samara Alberts | : 1970 Subjective Contacts Contact Date/Time Type Contact Phone/Fax 06/12/2024 05:16 AM EDT Vendor (Outgoing) Samara Alberts [phone] 06/16/2024 05:10 AM EDT Vendor (Outgoing) Samara Alberts [phone] 06/18/2024 05:12 AM EDT Vendor (Outgoing) Samara Alberts [phone] Patient-Reported Symptoms: Patient Findings Negatives: Signs/symptoms of thrombosis, Signs/symptoms of bleeding, Change in health, Change in alcohol use, Change in activity, Upcoming invasive procedure, Missed doses, Extra doses, Change in medications, Change in diet/appetite, Bruising Objective Current Warfarin Dose As of 06/19/2024 Warfarin maintenance plan: 5 mg (5 mg x 1) every day INR Result As of 06/19/2024 INR goal: 2.0-3.0 INR used for dosin.7 (06/19/2024) Assessment & Plan Warfarin Plan As of 06/19/2024 Full warfarin instructions: 5 mg every day No change documented: Rodolfo Ricks RPh Next INR check: 07/31/2024 Repeat PT/INR in 6 week(s) Weekly dose: not changed Additional Dosing Information: Description (Takes in AM) I spent a total of 10-19 minutes (exact time 12 mins) on the date of service in preparation, delivery, and documentation of the care provided to Samara Alberts excluding any time spent in the performanceof separately billed services or time spent by another provider/QHP. oRdolfo Ricks RP Clinical Pharmacist 06/19/2024, 3:43 PM documented in this encounter Plan of Treatment Upcoming Encounters Date Type Department Care Team (Late st Contact Info) Description 07/31/2024 2:00 PM EDT Anticoagulation Pharmacy, [facility] [address] [place] [address] Pharmacist2, [facility] [address] [place] [address] 09/15/2024 10:00 AM EST Office Visit Family Practice [facility] [address] [place] [address] Morris Mott, DO [address] [place] [address] Scheduled Procedures Name Priority Associated Diagnoses Date/Ti me COLONOSCOPY FLEXIBLE PROXIMA L DIAGNOSTIC Recall History of colonic polyps Health Maintenance Due Date Last Done Comments HIV Screening 1985 Hepatitis B Vaccine (1 of 3 - 19+ 3-dose series) 1989 Fecal Occult Blood Test 2015 Sigmoidoscopy 2015 Zoster Vaccines (1 of 2) 2020 Depression Screening 08/20/2021 08/20/2020 Cologuard 08/30/2023 08/30/2020, 08/11, 08/26/2020 COVID-19 Vaccine (2022- season) 2024 10/07/2023, 10/26/2022, 08/07/2021, Additional history [...] Comments INR FINGERSTICK, POINT OF CARE STAT 06/19/2024 3:45 PM EDT Protein C deficiency (HCC) Anticoagulation management encounter documented in this encounter Results * INR FINGERSTICK, POINT OF CARE (06/19/2024 3:45 PM EDT) Fingerstick INR 2.7 INR 3:47 PM EDT [facility] Blood 06/19/2024 3:45 PM EDT 06/19/2024 3:47 PM EDT Narrative [facility] - 06/19/2024 3:47 PM EDT Therapeutic ranges for non-operative patients: Prophylaxsis/treatment of DVT: (Range:2.0-3.0) Treatment of pulmonary embolism:(Range:2.0-3.0) Prevention of systemic embolism from: -tissue heart valves -acute myocardial infarction -valvular heart disease -atrial fibrillation (Range: 2.0-3.0) Mechanical prosthetic valves: (Range: 2.5-3.5) Rodolfo Ricks [facility] LAB POINT O F CARE TEST DOCKED DEVICE UNSOLICITED RESULTS [facility] [address] [place] [address] documented in this encounter Visit Diagnoses Diagnosis Protein C deficiency (HCC)- Primary Primary hypercoagulable state Anticoagulation management encounter Encounter for therapeutic drug monitoring documented in this encounter Advance Directives * Full Code (Latest Code Status on File) Date Activated Date Inactivated Comments 10/13/2017 10:50 AM 10/13/2017 4:25 PM This order re flects the patients wishes and were consensually agreed upon. Care Teams Sample Hand Relationship Specialty Start Date End Date Morris Mott DO [address] [facility] [place] [address] PCP - General Family Medicine 03/23/17 documented as of this encounter"
--- OUTSIDE RECORDS SUMMARY | 2024-09-18 06:23 | External Medical Summary | Summary of Care ---
Author Name Unknown Organization [facility] Address [address] [place] [address] Phone [phone] Care Team Providers Care Financial Systems Administrator Name Role Phone Morris Mott DO Primary Care Provider [phone] Encounter Details Date Type Department Care Team (Late st Contact Info) Description 06/13/2024 11:20 AM EDT Immunization Ancillary [facility] [place] [address] [place] [address] Sp, [facility] [address] [facility] [place] [address] Allergies Active Allergy Reactions Criticality Noted Date Comments Shellfish Allergy 10/01/2017 Itchy, rash, throat closes up documented as of this encounter (statuses as of 06/13/2024) Medications Medication Sig Dispensed Refills Start Date End Date Status [place]-3 Fatty Acids (FISH OIL) 1000 MG Capsule [...] Tablet (Coumadin)Indications:Prim roberto hypercoagulable state (HCC),Anticoagulation management encounter,skilled nursing current use of anticoagulant therapy,Protein C deficiency [...] mRNA, LNP-s, No Pre serve, 2-Dose Series (CanDiag) 08/07/2021,01/29/2021,01/08/2021 COVID-19, MRNA-LNP, 23-24, P F, 30 MCG/0.3 mL, 12 YRS AND ABOVE, IM ([facility] [facility]) 10/07/2023 Covid-19, Mrna, Lnp-s, Pf, Bivalent, 30 Mcg, IM, 12 yrs and above (CanDiag) 10/26/2022 Seasonal Influenza, PF, 6 M & [...] 06/19/2024 3:50 PM EDT Anticoagulation Pharmacy, [facility] [address] [place] [address] [address] Pharmacist2, [facility] [address] [place] [address] 09/15/2024 10:00 AM EST Office Visit Family Practice [facility] [address] [place] [address] Morris Mott, [address] [facility] [place] [address] Scheduled Procedures Name Priority Associated Diagnoses Date/Ti [...] and were consensually agreed upon. Care Teams Financial Systems Administrator Relationship Specialty Start Date End Date Morris Mott DO [address] [place] [address] PCP - General Family Medicine 03/23/17 documented as of this encounter
--- OUTSIDE RECORDS SUMMARY | 2024-09-18 06:23 | External Medical Summary | Summary of Care ---
Author Name Unknown Organization [facility] Address [address] [place] [address] Phone [phone] Care Team Providers Care Home Care Music Therapist Name Role Phone aGrthMorris glez Primary Care Provider [phone] Reason for Visit * Reason Onset Date Comments MyCode Nonconsent - Language Barrier 06/13/2024 Encounter Details Date Type Department Care Team (Late st Contact Info) Description 06/13/2024 Orders Only Outcomes Research Department [address], [place] [id number] Claudia Neri CHRA MyCode Nonconsent Documentation Allergies Active Allergy Reactions Criticality Noted Date Comments Shellfish Allergy 10/01/2017 Itchy, rash, throat closes up documented as of this encounter (statuses as of 06/13/2024) Medications Medication Sig Dispensed Refills Start Date End Date Status [place]-3 Fatty Acids (FISH OIL) 1000 MG Capsule [...] Tablet (Coumadin)Indications:Prim roberto hypercoagulable state (HCC),Anticoagulation management encounter,terminal superintendent current use of anticoagulant therapy,Protein C deficiency [...] mRNA, LNP-s, No Pre serve, 2-Dose Series ([employer]) 08/07/2021,01/29/2021,01/08/2021 COVID-19, MRNA-LNP, 23-24, P F, 30 MCG/0.3 mL, 12 YRS AND ABOVE, IM ([facility] 10/07/2023 Covid-19, Mrna, Lnp-s, Pf, Bivalent, 30 Mcg, IM, 12 yrs and above ([employer]) 10/26/2022 Seasonal Influenza, PF, 6 M & above, IM , (FluLaval or Fluzone) 06/30/2023,08/18/2022,06/18/2021, 0 20,09/06/2018,01/20/2018 Seasonal Influenza, Quadriva lent, No [...] as of this encounter Progress Notes * Claudia Neri CHRA - 06/13/2024 3:23 PM EDT Camode Nonconsent Documentation Samara Alberts was approached in the clinic regarding participation in the MyCode Project and did not consent. documented in this encounter Plan of Treatment Upcoming Encounters Date Type Department Care Team (Late st Contact Info) Description 06/19/2024 3:50 PM EDT Anticoagulation Pharmacy, [facility] [address] [facility] [place] [address] Pharmacist2, [facility] [address] [facility] [place] [address] 09/15/2024 10:00 AM EST Office Visit Family Practice [facility] [address] [facility] [place] [address] Morris Mott DO [address] [facility] [place] [address] Scheduled Procedures Name Priority Associated Diagnoses Date/Ti [...] Tdap) 08/07/2026 08/07/2016 Lipid Panel 09/22/2027 09/22/2022, 05/06/2019, 04/29/2015 RETIRED - COLONOSCOPY-EVERY 5 YRS AGES [...] were consensually agreed upon. Care Teams Home Care Music Therapist Relationship Specialty Start Date End Date Morris Mott DO [address] [facility] [place] [address] PCP - General Family Medicine 03/23/17 documented as of this encounter
--- OUTSIDE RECORDS SUMMARY | 2024-09-18 06:23 | External Medical Summary | Summary of Care ---
Author Name Unknown Organization [facility] Address [address] [place] [address] Phone [phone] Care Team Providers Care Investigative Writer Name Role Phone JulietagerardMorris DO Primary Care Provider [phone] Encounter Details Date Type Department Care Team (Late st Contact Info) Description 04/20/2024 Orders Only PATIENT PORTAL DO NOT DELETE THIS DEPT USED BY [place] [address] Allergies Active Allergy Reactions Criticality Noted Date Comments Shellfish Allergy 10/01/2017 Itchy, rash, throat closes up documented as of this encounter (statuses as of 04/20/2024) Medications Medication Sig Dispensed Refills Start Date End Date Status Joffre-3 Fatty Acids (FISH OIL) 1000 MG Capsule [...] Tablet (Coumadin)Indications:Prim roberto hypercoagulable state (HCC),Anticoagulation management encounter,ocean transportation intermediary current use of anticoagulant therapy,Protein C deficiency (HCC) Take 1 Tablet by mouth in the morning. OR DIRECTED BY [facility]. 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 pylori infection 03/08/20 19 Colitis 08/20/2020 Arteritis, Takayasu 03/28/20 15 documented as of this encounter (statuses as of 04/20/2024) Immunizations Name Administration Dates Next Due COVID-19 mRNA, LNP-s, No Pre serve, 2-Dose Series ([employer]) 08/07/2021,01/29/2021,01/08/2021 COVID-19, MRNA-LNP, 23-24, P F, 30 MCG/0.3 mL, 12 YRS AND ABOVE, IM ([employer]) 10/07/2023 Covid-19, Mrna, Lnp-s, Pf, Bivalent, 30 [...] Care Team (Late st Contact Info) Description 05/01/2024 3:50 PM EDT Anticoagulation Pharmacy, [facility] [address] [place] [address] Pharmacist2, [facility] [address] [place] [address] 09/15/2024 10:00 AM EST Office Visit Family Practice [facility] [address] [place] [address] Morris Mott, DO [address] [place] [address] Scheduled Procedures Name Priority Associated Diagnoses Date/Ti [...] 06/18/2021, Additional history exists GFR 10/25/2024 10/25/2023, 02/05/2023, 09/22/2022, Additional history exists Albumin/Creatinine Ratio 09/22/2025 [...] and were consensually agreed upon. Care Teams Investigative Writer Relationship Specialty Start Date End Date Morris Mott DO [address] [place] [address] PCP - General Family Medicine 03/23/17 documented as of this encounter
--- OUTSIDE RECORDS SUMMARY | 2024-09-18 06:24 | External Medical Summary | Summary of Care ---
Author Name Unknown Organization [facility] Address [address] [place] [address] Phone [phone] Care Team Providers Care Staffing Rn Name Role Phone Kelley Aguilera DO Primary Care Provider [phone] Reason for Visit * Reason Comments eRx-Medication Refill Encounter Details Date Type Department Care Team (Late st Contact Info) Description 03/20/2024 Refill Family Practice [facility] [place] [address] [place] [address] Kelley Aguilera DO [address] [facility] [place] [address] Primary hypercoagulable state (HCC); Anticoagulation management encounter; intermediate current use of anticoagulant therapy; Protein C deficiency (HCC) Allergies Active Allergy Reactions Criticality Noted Date Comments Shellfish Allergy 10/01/2017 Itchy, rash, throat closes up documented as of this encounter (statuses as of 03/21/2024) Medications Medication Sig Dispensed Refills Start Date End Date Status [place]-3 Fatty Acids (FISH OIL) 1000 MG Capsule Take 1 Capsule by mouth in the morning. Active Multiple Vitamins-Minerals (CENTRUM ADULTS) TABS Take 1 Tab by mouth daily. Active Atorvastatin Calcium 20 MG Oral Tablet (Lipitor)Indications:Pur e hypercholesterolemia TAKE 1 TABLET BY MOUTH IN THE MORNING 90 Tablet 4 Active amLODIPine Besylate 10 MG Oral Tablet (Norvasc)Indications:HTN , goal below 140/90 Take 1 Tablet by mouth daily. In the morning. 90 Tablet 3 4 Active Warfarin Sodium 5 MG Oral Tablet (Coumadin)Indications:Pr imary hypercoagulable state (HCC),Anticoagulation management encounter,intermediate current use of anticoagulant therapy,Protein C deficiency (HCC) Take 1 Tablet by mouth in the morning. OR DIRECTED BY [facility]. 30 Tablet 1 4 Active Warfarin Sodium 5 MG Oral Tablet (Coumadin)Indications:Pr imary hypercoagulable state (HCC),Anticoagulation management encounter,intermediate current use of anticoagulant therapy,Protein C deficiency (HCC) TAKE 1 AND 1/2 TABLET BY MOUTH DAILY ON WEDNESDAY AND 1 TABLET DAILY ON ALL OTHER DAYS OR DIRECTED 30 Tablet 4 024 Discontinued documented as of this encounter (statuses as of 03/21/2024) Active Problems Problem Noted Date Diagnosed Date Primary osteoarthritis of both knees 02/24/2017 Chronic anticoagulation 03/28/2015 Encounter for long-term (current) use of medicat ions 03/28/2015 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 pylori infection 03/08/20 19 Colitis 08/20/2020 Arteritis, Takayasu 03/28/20 15 documented as of this encounter (statuses as of 03/21/2024) Immunizations Name Administration Dates Next Due COVID-19 mRNA, LNP-s, No Pre serve, 2-Dose Series ([employer]) 08/07/2021,01/29/2021,01/08/2021 COVID-19, MRNA-LNP, 23-24, P F, 30 MCG/0.3 mL, 12 YRS AND ABOVE, IM ([employer]) 10/07/2023 Covid-19, Mrna, Lnp-s, Pf, Bivalent, 30 [...] Answer Date Recorded PHQ-2 Score 0 08/20/2020 Sex and Gender Information Value Date Recorded Sex Assigned at Male 01/21/2022 9:34 PM EDT Gender Identity Not on file Sexual Orientation Straight 01/21/2022 9: 34 PM EDT Job Start Date Occupation Industry Not on file Not on file Not on file documented as of this encounter Miscellaneous Notes * Telephone Encounter - Haylee Crowe RPh - 03/21/2024 11:51 AM EDTSigned Prescriptions: Disp Refills Warfarin Sodium 5 MG Oral Tablet (Coumadin)30 Tab*1 Sig: Take 1 Tablet by mouth in the morning. OR DIRECTED BY [facility].Authorizing Provider: KELLEY AGUILERA User: HAYLEE CROWE * Telephone Encounter - Haylee Crowe [facility] - 03/21/2024 11:48 AM EDT Assessment & Plan Warfarin Plan As of 03/20/2024 Full warfarin instructions: 5 mg every day No change documented: Rodolfo Ricks, [facility] Next INR check: 05/01/2024 Haylee Youssef, PharmD Clinical Pharmacist [facility] [phone] 03/21/2024 11:51 AM documented in this encounter Plan of Treatment Upcoming Encounters Date Type Department Care Team (Late st Contact Info) Description 04/03/2024 9:30 AM EDT Imaging Vascular Lab, [facility], [address] [place] [address] 04/05/2024 10:00 AM EDT Office Visit Family Practice [facility] [address] [facility] [place] [address] Kelley Aguilera, DO [address] [facility] [place] [address] 05/01/2024 3:50 PM EDT Anticoagulation Pharmacy, [facility] [address] [facility] [place] [address] Pharmacist2, [facility] [address] [facility] [place] [address] Scheduled Procedures Name Priority Associated Diagnoses Date/Ti me COLONOSCOPY FLEXIBLE PROXIMA L DIAGNOSTIC Recall History of colonic polyps Health Maintenance Due Date Last Done Comments HIV Screening 1985 Hepatitis B (1 of 3 - 19+ 3-dose series) 1989 Fecal Occult Blood Test 2015 Sigmoidoscopy 2015 Zoster Vaccines (1 of 2) 2020 Depression Screening 08/20/2021 08/20/2020 Cologuard 08/30/2023 08/30/2020, 08/11, 08/26/2020 GFR 10/25/2024 10/25/2023, 02/0 05/2023, 09/22/2022, Additional history exists Albumin/Creatinine Ratio 09/22/2025 09/22/2022 Colonoscopy 08/01/2026 08/01/2021, 08/01/2021 Colorectal Cancer Screening 08/01/2026 DTaP,Tdap,and Td Vaccines (2 - Td or Tdap) 08/07/2026 08/07/2016 Lipid Panel 09/22/2027 09/22/2022, 02/09, 04/29/2015 RETIRED - COLONOSCOPY-EVERY 5 YRS AGES 18-100 Discontinued 08/01/2021, 08/01/2021 Influenza Vaccine (FLU shot) Completed 06/30/2023, 08/18/2022, 06/18/2021, Additional history exists COVID-19 Vaccine Completed 10/07/2023, , 08/07/2021, Additional history exists GARDASIL-HPV IMMUNIZATION SERIES Aged Out No longer eligible based on [...] as of this encounter Visit Diagnoses Diagnosis Primary hypercoagulable state (HCC) Primary hypercoagulable state Anticoagulation management encounter Encounter for therapeutic drug monitoring intermediate current use of anticoagulant therapy Protein C deficiency (HCC) Primary hypercoagulable state documented in this encounter Advance Directives * Full Code (Latest Code Status on File) Date Activated Date Inactivated Comments 10/13/2017 10:50 AM 10/13/2017 4:25 PM This order re flects the patients wishes and were consensually agreed upon. Care Teams Staffing Rn Relationship Specialty Start Date End Date Kelley Aguilera DO [address] [place] [address] PCP - General Family Medicine 03/23/17 documented as of this encounter
--- OUTSIDE RECORDS SUMMARY | 2024-09-18 06:24 | External Medical Summary | Summary of Care ---
Author Name Unknown Organization [facility] Address [address] [place] [address] Phone [phone] Care Team Providers Care Stitch Burnisher Name Role Phone Kelley Aguilera DO Primary Care Provider [phone] Reason for Visit * Reason Onset Date Comments Medication Refill 04/17/2024 Encounter Details Date Type Department Care Team (Late st Contact Info) Description 04/17/2024 Refill Family Practice [facility] [address] [place] [address] Kelley Aguilera DO [address] [place] [address] Primary hypercoagulable state (HCC); Anticoagulation management encounter; FDC current use of anticoagulant therapy; Protein C deficiency (HCC) Allergies Active Allergy Reactions Criticality Noted Date Comments Shellfish Allergy 10/01/2017 Itchy, rash, throat closes up documented as of this encounter (statuses as of 04/18/2024) Medications Medication Sig Dispensed Refills Start Date End Date Status [place]-3 Fatty Acids (FISH OIL) 1000 MG Capsule Take 1 Capsule by mouth in the morning. Active Multiple Vitamins-Minerals (CENTRUM ADULTS) TABS Take 1 Tab by mouth daily. Active amLODIPine Besylate 10 MG Oral Tablet (Norvasc)Indications: HTN, goal below 140/90 Take 1 Tablet by mouth daily. In the morning. 90 Tablet 3 03/16/2024 Active Warfarin Sodium 5 MG Oral Tablet (Coumadin)Indications :Primary hypercoagulable state (HCC),Anticoagulation management encounter,manager category current use of anticoagulant therapy,Protein C deficiency (HCC) Take 1 Tablet by mouth in the morning. OR DIRECTED BY [facility]. 90 Tablet 1 04/18/2024 Active Warfarin Sodium 5 MG Oral Tablet (Coumadin)Indications :Primary hypercoagulable state (HCC),Anticoagulation management encounter,manager category current use of anticoagulant therapy,Protein C deficiency (HCC) Take 1 Tablet by mouth in the morning. OR DIRECTED BY [facility]. 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 pylori infection 03/08/20 19 Colitis 08/20/2020 Arteritis, Takayasu 03/28/20 15 documented as of this encounter (statuses as of 04/18/2024) Immunizations Name Administration Dates Next Due COVID-19 mRNA, LNP-s, No Pre serve, 2-Dose Series ([employer]) 08/07/2021,01/29/2021,01/08/2021 COVID-19, MRNA-LNP, 23-24, P F, 30 MCG/0.3 mL, 12 YRS AND ABOVE, IM ([facility]) 10/07/2023 Covid-19, Mrna, Lnp-s, Pf, Bivalent, 30 Mcg, IM, 12 yrs and above ([employer]) 10/26/2022 Seasonal Influenza, PF, 6 M & [...] encounter Miscellaneous Notes * Telephone Encounter - Gio Em [facility] - 04/18/2024 11:56 AM EDT Signed Prescriptions: Disp Refills Warfarin Sodium 5 MG Oral Tablet (Coumadin)90 Tab*1 Sig: Take 1 Tablet by mouth in the morning. OR DIRECTED BY [facility].Authorizing Provider: KELLEY AGUILERA User: GIO EM * Telephone Encounter - Annalise Dodd CPhT - 04/17/2024 8:53 AM EDT Patient is requesting a 90-day supply, pre-edited RXs as such. Please review and approve if appropriate. Pending Prescriptions: Disp Refills Warfarin Sodium 5 MG Oral Tablet (Coumadi*90 Tab*3 Sig: Take 1 Tablet by mouth in the morning. OR DIRECTED BY [facility]. Last Visit: 03/23/2024 (in office), 03/18/2022 (telemedicine) 09/15/2024 If no future appointments scheduled, and last appointment is greater than a year ago, please schedule patient for an appointment Last date the medication was ordered: 03/21/2024 Patient Phone Numbers Labs: Lab Results Component Value Date/Time CREAT 0.9 10/25/2023 03:36 PM CREAT 0.9 06/27/2020 10:00 AM POTASSIUM 3.9 10/25/2023 03:36 PM POTASSIUM 4.0 06/27/2020 10:00 AM TSH 1.53 06/22/2018 11:45 AM LDLCALC 77 09/22/2022 10:44 AM LDLCALC 72 03/08/2019 10:13 AM LDLDIRECT NOT APPLICABLE 03/08/2019 10:13 AM ALT 43 10/25/2023 03:36 PM ALT 47 06/27/2020 10:00 AM HGBA1C 5.8 11/13/2015 10:27 AM documented in this encounter Plan of Treatment Upcoming Encounters Date Type Department Care Team (Late st Contact Info) Description 05/01/2024 3:50 PM EDT Anticoagulation Pharmacy, [facility] [place] [address] [place] [address] Pharmacist2, [facility] [address] [place] [address] 09/15/2024 10:00 AM EST Office Visit Family Practice [facility] [place] [address] [place] [address] Kelley Aguilera, [address] [place] [address] Scheduled Procedures Name Priority Associated Diagnoses Date/Ti [...] Tdap) 08/07/2026 08/07/2016 Lipid Panel 09/22/2027 09/22/2022, 05/2 06/2019, 04/29/2015 RETIRED - COLONOSCOPY-EVERY 5 YRS AGES [...] management encounter Encounter for therapeutic drug monitoring manager category current use of anticoagulant therapy Protein C deficiency (HCC) Primary hypercoagulable state documented in this encounter Advance Directives * Full Code (Latest Code Status on File) Date Activated Date Inactivated Comments 10/13/2017 10:50 AM 10/13/2017 4:25 PM This order re flects the patients wishes and were consensually agreed upon. Care Teams Stitch Burnisher Relationship Specialty Start Date End Date Kelley Aguilera DO [address] [place] [address] PCP - General Family Medicine 03/23/17 documented as of this encounter
[2024-09-18] MEDS: ATORVASTATIN 20 MG TAB PO SCH (07:08)
[2024-09-18] MEDS: amLODIPine BESYLATE 5 MG TAB PO SCH (07:08)
[2024-09-18 07:11] LABS: Basophils # (auto) 0.04 K/uL (0.00-0.20); Basophils % (auto) 0.7 %; Eosinophils # (auto) 0.12 K/uL (0.00-0.50); Eosinophils % (auto) 2.2 %; Hematocrit (blood only) 42.6 % (42.0-52.0); Hemoglobin 14.4 g/dl (14.0-18.0); Immature Granulocytes # (auto) 0.01 K/uL (0.01-0.20); Immature Granulocytes % (auto) 0.2 %; Lymphocytes # (auto) 1.87 K/uL (1.20-3.40); Lymphocytes % (auto) 33.8 %; Mean Corpuscular Hemoglobin 30.1 pg (25.0-34.0); Mean Corpuscular Hgb Conc 33.8 g/dL (32.0-36.0); Mean Corpuscular Volume 88.9 fL (80.0-100.0); Mean Platelet Volume 9.9 fL (9.4-12.4); Monocytes # (auto) 0.49 K/uL (0.11-0.59); Monocytes % (auto) 8.9 %; Neutrophils % (auto) 54.2 %; Platelet Count 209 K/uL (130-400); RDW Coefficient of Variation 12.8 % (11.5-14.5); Red Blood Count 4.79 M/uL (4.70-6.10); White Blood Count 5.53 K/ul (4.8-10.8)
[2024-09-18 07:31] LABS: INR 2.3 (0.9-1.1); Prothrombin Time 22.9 Seconds (9.0-12.0)
[2024-09-18 07:42] LABS: BUN Creatinine Ratio 20.9 (10-20); Calcium 8.8 mg/dl (8.6-10.3); Creatinine Clr Calc Pharmacy 85.8 ml/min; Magnesium 2.1 mg/dl (1.7-2.4); Potassium 3.5 mmol/L (3.5-5.1)
[2024-09-18 08:09] VITALS: RESP 18
[2024-09-18] MEDS: POTASSIUM CHLORIDE CRTAB 20 MEQ TABCR PO STA (08:50)
[2024-09-18] MEDS ORDERED: amLODIPine BESYLATE 5 MG TAB PO SCH (09:00)
--- NOTE | 2024-09-18 10:17 | Hospitalist Progress Note ---
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 Owens the vascular surgeon by the ER physician- recommendation was to maintain therapeutic INR and observe He remains free from any pain since in the emergency room His EKG and troponin are unremarkable He will be given pain medications as needed and will be observed in telemetry unit Will check CRP and consult vascular surgery CRP has been negative and other blood counts are unremarkable Remains free from any symptoms Discussed with the vascular surgeonadvised to have outpatient vascular starr rgery/rheumatology appointment Discussed with Dr. 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 Unremarkable CTA of the chest without acute intrathoracic abnormality. 2. Progressively worsened areas of high-grade stenosis with alternating fusiform dilation involving the celiac trunk and its branches which has progressed from the 2015 comparison. Again, the vascular findings within the abdomen and pelvis are suggestive of an underlying chronic vasculitis. 3. Dilation of the superior mesenteric artery with a new age-indeterminate short segment dissection. 4. 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 5. Incidental findings as above. (4) Primary hypercoagulable state: Plan: Has history of protein see deficiency Has been on warfarin and the INR is therapeutic at 2.6 today (5) Hyperlipidemia: Plan: Continue Statin (6) HTN (hypertension): Plan: Will continue current medications Plan DVT prophylaxis continue Coumadin and INR is therapeutic CODE STATUS Full Admission and Anticipated Discharge Date Admission Date: September 17, 2024 Subjective 09/18/2024 The patient was seen and examined in telemetry unit in presence of the daughter He did not have any more symptoms specially no epigastric pain or chest pain since admission Denies any other symptoms and he wants to go home Review of Systems Review of Systems: All systems reviewed and are unremarkable except as noted below Physical Exam Physical Exam: Lying in bed without any acute distress Constitutional: well developed, well nourished and average body habitus; not ill appearing Eyes: PERRL, conjunctivae normal, anicteric sclerae ENMT: external ear and nose normal, oropharynx normal Neck: trachea midline, no thyromegaly Respiratory: no respiratory distress Auscultation: lungs clear to auscultation bilaterally Cardiovascular: Rate/Rhythm: regular rate and regular rhythm; not tachycardic Heart Sounds: normal S1 and normal S2; no murmur Extremities: no edema Gastrointestinal (Abdomen): Inspection/Auscultation: normal bowel sounds; abdomen not distended Percussion/Palpation: abdomen soft; abdomen nontender Neurologic: normal touch/pain/proprioception and moves all extremities; no focal motor deficits Lymphatic: no cervical or axillary lymphadenopathy Results & Data Results & Data Vital Signs (Past 12 Hours) Vital Signs Temp Pulse Pulse Resp BP Pulse Ox O2 Del Method 09/18/24 08:08 36.3 C L 65 18 129/88 98 Room Air 09/18/24 03:58 36.7 C 65 16 122/78 98 Room Air 09/17/24 23:34 36.9 C 66 18 127/81 97 Room Air 09/17/24 23:06 76
[2024-09-18] MEDS: predniSONE 10 MG TABLET PO SCH (11:23)
[2024-09-18 11:43] VITALS: BP 137/97; PULSE 72; TEMP 97.2; O2SAT 96
[2024-09-18] MEDS ORDERED: WARFARIN SOD 5 MG TAB PO SCH (16:00)
--- NOTE | 2024-09-19 08:24 | Discharge Summary ---
Date of Service September 19, 2024 Admission HPI Per Admitting Provider History was taken through the patient and the son. He is a 54-year-old male with significant past medical history of primary hypercoagulable state, protein C deficiency, tachycardia osteoarthritis on anticoagulation, hypertension and hyperlipidemia apparently has been complaining of severe epigastric pain while walking with his dog this morning following breakfast. The pain lasted for about half an hour and not associated with some shortness of breath and profuse sweating which lasted for about half an hour. At some point he felt like fainting but did not have any loss of consciousness. In the emergency room he was completely free from any pain. He denies any fever any chills, any abdominal pain, nausea vomiting, any cough or problem with urine or bowel habit. He was noted to have acute/subacute superior mesenteric artery dissection with chronic findings of arthritis without any evidence of pulmonary embolism and/or EKG changes. He was admitted to telemetry unit for continuation of care. Admission Exam Per Admitting Provider Physical Exam: Lying in bed without any acute distress Constitutional: well developed, well nourished and average body habitus; not ill appearing Eyes: PERRL, conjunctivae normal, anicteric sclerae ENMT: external ear and nose normal, oropharynx normal Neck: trachea midline, no thyromegaly Respiratory: no respiratory distress Auscultation: lungs clear to auscultation bilaterally Cardiovascular: Rate/Rhythm: regular rate and regular rhythm; not tachycardic Heart Sounds: normal S1 and normal S2; no murmur Extremities: no edema Gastrointestinal (Abdomen): Inspection/Auscultation: normal bowel sounds; abdomen not distended Percussion/Palpation: abdomen soft; abdomen nontender Musculoskeletal: No acute arthritis involving any of the joint Neurologic: normal touch/pain/proprioception and moves all extremities; no focal motor deficits Lymphatic: no cervical or axillary lymphadenopathy Principal Diagnosis Takayasu arteritis, superior mesenteric artery dissection, epigastric pain Discharge Exam Lying in bed without any acute distress Constitutional well developed, well nourished and average body habitus; not ill appearing Eyes PERRL, conjunctivae normal, anicteric sclerae ENMT external ear and nose normal, oropharynx normal Neck trachea midline, no thyromegaly Respiratory no respiratory distress Auscultation: lungs clear to auscultation bilaterally Cardiovascular Rate/Rhythm: regular rate and regular rhythm; not tachycardic Heart Sounds: normal S1 and normal S2; no murmur Extremities: no edema Gastrointestinal (Abdomen) Inspection/Auscultation: normal bowel sounds; abdomen not distended Percussion/Palpation: abdomen soft; abdomen nontender Neurologic normal touch/pain/proprioception and moves all extremities; no focal motor deficits Lymphatic no cervical or axillary lymphadenopathy Discharge Data Allergies Allergy/AdvReac Type Severity Reaction Status Date / Time No Known Allergies Allergy Unverified 09/18/14 03:22 Consultations 09/17/24 15:10 ED Decision to Admit Stat Ordered Studies 09/17/24 10:28 CT angio abdomen pelvis w con Stat CT angio chest wo/w con Stat Hospital Course (1) Arterial dissection: Presented with acute epigastric pain while walking with his dog this morning following breakfast Has had sweating and also some shortness of breath associated with it CTA showed 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 Owens the vascular surgeon by the ER physician- recommendation was to maintain therapeutic INR and observe He remains free from any pain since in the emergency room His EKG and troponin are unremarkable He will be given pain medications as needed and will be observed in telemetry unit Will check CRP and consult vascular surgery CRP has been negative and other blood counts are unremarkable Remains free from any symptoms Discussed with the vascular surgeonadvised to have outpatient vascular surgery/rheumatology appointment Discussed with Dr. Monzon, the copy clerk and started with prednisone 30 mg once daily and he will be followed up in his office within 2 to 3 weeks He will be discharged home this afternoon (2) Epigastric abdominal pain: Added prednisone and Protonix (3) Takayasu's arteritis: History of Takayasu's arteritis with history of splenic infarct and chronic vasculitic changes in the arteries as mentioned in CTA as below CT angio chest wo/w con, CT angio abdomen pelvis w con IMPRESSION: 1. Unremarkable CTA of the chest without acute intrathoracic abnormality. 2. Progressively worsened areas of high-grade stenosis with alternating fusiform dilation involving the celiac trunk and its branches which has progressed from the 2015 comparison. Again, the vascular findings within the abdomen and pelvis are suggestive of an underlying chronic vasculitis. 3. Dilation of the superior mesenteric artery with a new age-indeterminate short segment dissection. 4. 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 5. Incidental findings as above. (4) Primary hypercoagulable state: Has history of protein see deficiency Has been on warfarin and the INR is therapeutic at 2.6 today (5) Hyperlipidemia: Continue Statin (6) HTN (hypertension): Will continue current medications Plan DVT prophylaxis continue Coumadin and INR is therapeutic CODE STATUS Full Total Time Total Time Spent Total Time Spent (In Minutes): 35 minutes Discharge Plan Discharge Items Patient Disposition: Home - Self-Care Reason For Visit: ACUTE EPIGASTRIC PAIN,SMA DISECTION Discharge Diagnosis: Takayasu arteritis, superior mesenteric artery dissection, epigastric pain Condition on Discharge: Good Activity: Resume your previous activity Non-emergency contact: Primary Care Provider Call non-emergency contact if: you have any medication questions and your symptoms worsen Follow-up/Referrals: Morris Mott DO [Primary Care Provider] - (Date & Time 09/25/2024 9:20 AM Provider Morris Mott DO Department [facility] ) Diet: Heart Healthy Addtl Attending Provider Instructions: Please take precautions to avoid falls Take your medications as advised Keep taking prednisone once a day until you are being seen by the rheumatologistDr. Opperman Please keep appointments with the healthcare providers Pending Studies at Discharge: No Stand-Alone Forms: My [facility], Smoking Cessation Medications and DC Order Prescriptions: New prednisone 10 mg Tablet 30 mg PO DAILY Qty: 60 0RF pantoprazole 40 mg Tablet,Delayed Release (Dr/Ec) 40 mg PO DAILY Qty: 30 0RF Continued atorvastatin 20 mg Tablet 20 mg PO DAILY Qty: 0 Rx Instructions: filled 07/13 90 day supply Caltrate 600 600 MG tablet 600 mg PO BID Qty: 0 Rx Instructions: otc unable to verify amlodipine 10 mg Tablet 10 mg PO DAILY Qty: 0 Rx Instructions: filled 07/18 90 day supply warfarin 5 mg Tablet 5 mg PO DAILY Qty: 0 Rx Instructions: filled 07/18 90 day supply Discharge Orders: Discharge Order (Routine); Ordered 09/18/24 Ordered By: Floridalma Lu Admission Data Admit Date/Time: 09/17/24 14:50 Attending Provider: Floridalma Lu Admit Provider: Floridalma Lu Primary Care Provider: Morris Mott Other Interventions: Discharge Summary Assessment (RN) Last Done: 09/18/24 12:34
== END 2024-09-18 13:07 | disposition home or self-care (01) | DRG 300 ==
LOC: ED 10:02 → INTOOBSV 14:50 → 2E 14:50